=== PATIENT | female | born 1955 | race Caucasian/White ===

== ENCOUNTER 2020-11-13 07:51 | Outpatient (REF) | payer BC, SELFPAY ==
--- NOTE | ~2020-11-13 | MM_ITS ---
EXAMINATION: MM SCREENING DIGITAL BREAST TOMOSYNTHESIS, BILATERAL CLINICAL INFORMATION: Screening. Asymptomatic. The lifetime risk of breast cancer based on the Tyrer-Cuzick Model is 7.6%. COMPARISON: Mammography: September 06, 2017 and studies dating back to January 14, 2010 TECHNIQUE: Digital breast tomosynthesis is performed in both the craniocaudal and mediolateral oblique views along with computer-aided detection (CAD). Synthesized 2D images are generated from the tomosynthesis. FINDINGS: There are scattered areas of fibroglandular density (ACR BI-RADS breast composition Category b). There are no significant masses, abnormal calcifications, or other abnormalities. Intramammary lymph nodes present. MM/MM tomosynthesis screening BI IMPRESSION: There are no significant changes from prior study. ASSESSMENT: BI-RADS 1: Negative RECOMMENDATION: Routine annual mammography screening. This patient's information was entered into a reminder system with a target due date for their next mammogram.
== END 2020-11-13 07:52 | disposition home or self-care (01) ==
LOC: HO.MAMMO 07:51
PROVIDERS: PCP Internal Medicine Endocrinology, Diabetes & Metabolism; Visit Provider Internal Medicine Endocrinology, Diabetes & Metabolism
DX: Z12.31 Encounter for screening mammogram for malignant neoplasm of breast (principal)
CPT/HCPCS: 77063; 77067

== ENCOUNTER 2021-11-18 07:51 | Outpatient (REF) | payer BC, SELFPAY ==
--- NOTE | ~2021-11-18 | MM_ITS ---
EXAMINATION: MM SCREENING DIGITAL BREAST TOMOSYNTHESIS, BILATERAL CLINICAL INFORMATION: Screening. Asymptomatic. The lifetime risk of breast cancer based on the Tyrer-Cuzick Model is 8%. COMPARISON: Mammography: 11/13/2020, 09/06/2017 TECHNIQUE: Digital breast tomosynthesis is performed in both the craniocaudal and mediolateral oblique views along with computer-aided detection (CAD). Synthesized 2D images are generated from the tomosynthesis. FINDINGS: There are scattered areas of fibroglandular density (ACR BI-RADS breast composition Category b). There are no significant masses, abnormal calcifications, or other abnormalities. There is stable small circumscribed nodule anterior upper outer left breast and central 9:00 right breast similar to prior exam. The axilla and skin contours are unremarkable. MM/MM tomosynthesis screening BI IMPRESSION: No significant changes from prior studies. ASSESSMENT: BI-RADS 2: Benign RECOMMENDATION: Routine annual mammography screening. This patient's information was entered into a reminder system with a target due date for their next mammogram.
== END 2021-11-18 07:52 | disposition home or self-care (01) ==
LOC: HO.MAMMO 07:51
PROVIDERS: Visit Provider Internal Medicine Endocrinology, Diabetes & Metabolism
DX: Z12.31 Encounter for screening mammogram for malignant neoplasm of breast (principal)
CPT/HCPCS: 77063; 77067

== ENCOUNTER 2022-11-24 07:23 | Outpatient (REF) | payer BC, SELFPAY ==
--- NOTE | ~2022-11-24 | MM_ITS ---
EXAMINATION: MM SCREENING DIGITAL BREAST TOMOSYNTHESIS, BILATERAL CLINICAL INFORMATION: Screening. Asymptomatic. The lifetime risk of breast cancer based on the Tyrer-Cuzick Model is 7%. COMPARISON: Mammography: 11/18/2021, 11/13/2020, 09/06/2017 TECHNIQUE: Digital breast tomosynthesis is performed in both the craniocaudal and mediolateral oblique views along with computer-aided detection (CAD). Synthesized 2D images are generated from the tomosynthesis. FINDINGS: There are scattered areas of fibroglandular density (ACR BI-RADS breast composition Category b). Parenchymal pattern is similar to prior studies. There is scattered bilateral minor nodularity similar to prior exams. No significant mass. No architectural abnormality or abnormal calcifications. The axilla and skin contours are unremarkable. No significant changes. MM/MM tomosynthesis screening BI IMPRESSION: No mammographic evidence of malignancy. ASSESSMENT: BI-RADS 2: Benign RECOMMENDATION: Routine annual mammography screening. This patient's information was entered into a reminder system with a target due date for their next mammogram.
== END 2022-11-24 07:24 | disposition home or self-care (01) ==
LOC: HO.MAMMO 07:23
PROVIDERS: PCP Internal Medicine Endocrinology, Diabetes & Metabolism; Visit Provider Internal Medicine Endocrinology, Diabetes & Metabolism
DX: Z12.31 Encounter for screening mammogram for malignant neoplasm of breast (principal)
CPT/HCPCS: 77063; 77067

== ENCOUNTER 2023-11-30 07:56 | Outpatient (REF) | payer BC, SELFPAY | END 2023-11-30 07:57 | disposition home or self-care (01) | LOC: HO.MAMMO 07:56 | PROVIDERS: PCP Internal Medicine Endocrinology, Diabetes & Metabolism; Visit Provider Internal Medicine Endocrinology, Diabetes & Metabolism | DX: Z12.31 Encounter for screening mammogram for malignant neoplasm of breast (principal) | CPT/HCPCS: 77063; 77067 ==

== ENCOUNTER → 2023-11-30 08:00 | Outpatient (BNV) | payer BC, SELFPAY | PROVIDERS: PCP Internal Medicine Endocrinology, Diabetes & Metabolism; Visit Provider Radiology Diagnostic Radiology | DX: Z12.31 Encounter for screening mammogram for malignant neoplasm of breast (principal) | CPT/HCPCS: 77063; 77067 ==

== ENCOUNTER 2025-01-08 14:03 | Outpatient (AMB) | payer BC, SELFPAY ==
--- NOTE | 2025-01-08 14:04 | A.OFFPC_ITS ---
Vital Signs 01/08/25 14:15 Height 5 ft 4 in Weight 207 lb 4 oz BMI 35.6 BP 132/74 Blood Pressure Location Lt brachial Position Sitting Respiration 13 Pulse 76 Pulse Source Pulse Oximeter Temp 97.2 F Temp Source Oral Pulse Oximetry (%) 97 Oxygen Delivery Method Room Air Intake Visit Reasons: CPE/Diabetes Intake Note: New patient to establish care Motor Grader Operator Required: No Allergies amoxicillin [From Augmentin] Allergy (Severe, Verified 01/08/25 14:09) Itching clavulanic acid [From Augmentin] Allergy (Severe, Verified 01/08/25 14:09) Itching Medication List - Last Reconciled 01/08/25 by Reena Lott, LEAN MANUFACTURING SPECIALIST- atorvastatin 20 mg PO DAILY dulaglutide (Trulicity) mg subcut flash glucose sensor (FreeStyle Ondina 2 Sensor kit) As directed insulin aspart U-100 (Novolog PenFill U-100 Insulin aspart) 1 sliding scale dose subcut USEASDIRECTD insulin aspart U-100 (Novolog FlexPen U-100 Insulin aspart) subcut insulin glargine (Basaglar KwikPen U-100 Insulin) 45 units (0.45 mL) subcut QPM metformin ER 1,000 mg (2 x 500 mg) PO BID pen needle, diabetic (Comfort EZ Pen Scott) Use 5 times per day pen needle, diabetic As directed sertraline 50 mg PO DAILY valsartan 160 mg PO DAILY Tobacco use date assessed: 01/08/25 Fall risk assessment: 2 + Falls in past year Last assessed Fall Risk: 01/08/25 Dental Screening Dental Screen Date: 01/08/25 Did you have a dental visit in the last 12 months?: No Did you have a dental problem in the last 6 months where you did not have access to dental care?: No Was dental information given to patient?: Patient has dentist HPI HPI Comments History of Present Illness Details Matti 69 y/o F with MDD, HLD, DM2 on insulin, HTN, obesity, environmental allergies Health Maintenance: Colon DEXA PAP Tdap 2004, admin today Mammo 11/2023 Specialists: [facility] Here today to est care Previous PCP: Bandar Feldman No records avail DM 2: uncontrolled a1c today 11.1%, has been out of trulicity for weeks. Taking metformin and Basaglar. Not taking Novolog as directed. Was using CGM, remains interested. Needs new referral to Endo Referred to Optho today for DM Eye exam HTN controlled on Valsartan HLD on statin MDD was on sertraline but ran out. Kamla si/hi. would like to restart Due for Tdap. Ff'd by ENT for allergies and voice hoarsness Review of Systems - Constitutional: Reports increased phys ical activity. - Endocrine: Reports poorly controlled d iabetes, A1c 11.1%. - Cardiovascular: Denies chest pain or p alpitations. - Neurological: Reports memory difficult ies. - Psychiatric: Reports history of depres eloisa. - Gastrointestinal: Denies abdominal keyana n. - Musculoskeletal: Denies joint pain. - Ophthalmologic: Reports need for diabe tic eye exam. - Dermatological: Denies new skin lesion s. - Respiratory: Denies dyspnea; reports h oarseness. - Urinary: Denies dysuria. - Hematologic: Denies easy bruising or b leeding. Physical Exam General: Well developed, well nourished, in no acute distress. Appears stated age. Head: Normocephalic, atraumatic. Eyes: Pupils are equal, round and reactive to light and accommodation. Conjunctivae are clear. Vision grossly normal. P Lungs: Clear to auscultation bilaterally. No rales, rhonchi or wheeze noted. Good air flow in all lester. Heart: Regular rate and rhythm. No murmurs, click, rubs or gallops are noted. Pulses: Peripheral pulses are equal and palpable bilaterally. Extremities: No clubbing, cyanosis nor edema is noted. Psych: Mood and affect appropriate. Results - Labs: A1c measurement 11.1%. Discussion Notes I discussed with the patient the management and treatment options for her chronic conditions, particularly focusing on her diabetes management due to an elevated A1c of 11.1%. We reviewed the importance of consistent medication adherence, particularly for glucose control, and I noted the need to address her issues with pharmacy compliance for continuity of care. Additionally, we discus sed the plan for diabetes management including a referral to an personal computer specialist within the hospital system to improve coordination of care. We talked about the insulin regimen adjustment to 45 units of Basaglar nightly, from 32, to better manage her glucose. I emphasized the need for regular follow-up visits to monitor her progress and adjust treatment plans accordingly. Further, I discussed the necessity of a diabetic eye exam. The patient consented to all proposed plans and was agreeable to the new management strategies. Assessment and Plan 1. Diabetes Mellitus Type 2 - Adjust insulin glargine to 45 units be dtime. - Endocrinology referral entered. - Refill metformin prescription, - Resume Trulicity 1.5 weekly - CGM renewal - Issue pen needles 2. Hyperlipidemia - Continue atorvastatin. 3. Depression - Refill sertraline 50 mg. 4. Hypertension - Continue valsartan. 5. Preventive Care - Administer tetanus booster. - Diabetic eye exam referral. 6. Lifestyle Modification - Encourage physical activity. - Patient Instructions - Take insulin glargine 45 units at bedt mckayla. - Take metformin as prescribed: two 500 mg tablets in the morning and at night. - Resume Trulicity once you have a presc ription. - Continue atorvastatin and valsartan as before. - Restart sertraline and find your felipe dueñas bottle at home. - Exercise daily and maintain healthy me al patterns. - Schedule and attend your upcoming endo crinology and diabetic eye appointments. - Get your tetanus shot today before you leave. - Follow up in 8-10 weeks for the next v isit. Consent Patient was informed and verbally consented to the use of an ambient scribe for clinic note documentation during this visit. Total time spent caring for the patient today was 42 minutes. This includes time spent before the visit reviewing the chart, time spent during the visit, and time spent after the visit on documentation, reviewing laboratory results, diagnostic imaging, medications, performing a medically necessary evaluation, counseling on diagnoses, care coordination, ordering appropriate tests, ordering appropriate medications, review of tests performed by other providers, reporting test results with the patient, communication with other healthcare providers. [facility] Social History (Updated 01/08/25 @ 14:20 by Priscilla Nguyen MA) Household Members: Spouse Both parents involved: No Caregiver staying overnight: No Housing: House Are you a primary floor care technician to a significant other at home: No Do you presently have visiting nurse or other home services: No 75 years or older and lives alone: No Alcohol intake: current Alcohol intake frequency: a few times a month Patient Tobacco Use Status: Never used Tobacco e-Cigarette/Vaping Use: Never Used Second Hand Smoke Exposure: No service: No Current occupational status: employed Current occupation: contractor Cognitive needs: No Hearing needs: No Vision needs: Yes (wear glasses) Questionnaire PHQ-9 Over the last 2 weeks, how often have you been bothered by any of the following problems? 1. Little interest or pleasure in doing things: not at all 2. Feeling down, depressed, or hopeless: not at all 3. Trouble falling or staying asleep, or sleeping too much: not at all 4. Feeling tired or having little energy: not at all 5. Poor appetite or overeating: not at all 6. Feeling bad about yourself - or that you are a failure or have let yourself or your family down: not at all 7. Trouble concentrating on things, such as reading the newspaper or watching television: not at all 8. Moving or speaking so slowly that other people could have noticed. Or the opposite - being so fidgety or restless that you have been moving around a lot more than usual: not at all 9. Thoughts that you would be better off or of hurting yourself in some way: not at all Total score: 0 Depression Screening Interpretation: Negative Depression Screening Done: Yes 97057 - PHQ-9 Billing: Yes Source: Developed by Drs. Syd Malik, Florencia Maynard, Checo Winston and colleagues, with an educational ameya from [employer]. Thrive Questionnaire Date Thrive assessed: 01/08/25 I am a: Patient What is your living situation today?: I have a steady place to live Within the past 12 months, did the food you bought not last and you didn't have the money to get more?: Never true Within the past 12 months, did you worry whether your food would run out before you got money to buy more?: Never true Do you have trouble paying for medicines?: No Do you have trouble getting transportation to medical appointments?: No Do you have trouble paying your heating and electricity bill?: No Do you have trouble taking care of your child, family member or friend?: No Do you have trouble with day-to-day activities such as bathing, preparing meals, shopping, managing finances, etc.?: No Are you currently unemployed and looking for a job?: No Are you interested in more education?: No THRIVE Score: 0 AUDIT C Alcohol Use Questionnaire (AUDIT-C) 1. How often do you have a drink containing alcohol?: Monthly or less 2. How many drinks containing alcohol do you have on a typical day when you are drinking?: 1 or 2 Total Score: 1 Score Reviewed/Action Taken: Yes AMIE-7 AMB Questionnaire AMIE-7 Date AMIE - 7 assessed: 01/08/25 Feeling nervous, anxious, or on edge: 0 = Not at all Not being able to stop or control worryin = Not at all Worrying too much about different things: 0 = Not at all Trouble relaxin = Not at all Being so restless that it is hard to sit still: 0 = Not at all Becoming easily annoyed or irritable: 0 = Not at all Feeling afraid as if something awful might happen: 0 = Not at all Total AMIE-7 score (0-4 normal; 5-9 mild; 10-14 moderate; 15-21 severe): 0 Source: Developed by Drs. Syd Malik, Florencia Maynard, Checo Winston and colleagues, with an educational ameya from [employer]. AMIE-7 Assessment Billing AMIE-7 Assessment Tool: AMIE-7 Assessment 10232 Physical exam (Primary Care) Vital Signs: Last Vital Signs Temp 97.2 F 01/08/25 14:15 Pulse 76 01/08/25 14:15 Resp 13 01/08/25 14:15 BP 132/74 01/08/25 14:15 Pulse Ox 97 01/08/25 14:15 Oxygen Delivery Method Room Air 01/08/25 14:15 BMI result Body Mass Index 35.6 BMI Assessment/Plan discussion: High BMI High, discussed plan: lifestyle Tobacco/Smoking Status: Tobacco use Status Tobacco use date assessed 01/08/25 01/08/25 14:08 Patient Tobacco Use Status Never used Tobacco 01/08/25 14:20 e-Cigarette/Vaping Use Never Used 01/08/25 14:20 PHQ-9: PHQ-9 Score PHQ-9: Total score 0 01/08/25 14:57 Depression Screening Interpretation: Negative Thrive Assessment: Date of Thrive Assessment Date Thrive assessed 01/08/25 01/08/25 14:08 Results AMB Hemoglobin A1c AMB Hemoglobin A1c 11.1 % Last Edit by Priscilla Nguyen MA on 01/08/25 14:26 Immunizations Boostrix Tdap 2.5 Lf unit-8 mcg-5 Lf/0.5 mL intramuscular syringe Performing Provider: HANNAH Muñoz Performing Location: [facility] Family Medicine Administered by: Priscilla Nguyen MA on 01/08/25 15:03 Dose Route Admin Location Dispensed Lot Number Expiration Date NDC Community Support Professional 0.5 mL IM Right Deltoid 0.5 mL [id number] 04/14/27 [id number] Dealer Ignition VIS Given Date VIS Provided VIS Publication Date 01/08/25 Single Vaccine 21 Eligibility Eligibility Date Funding Source Not [facility] Eligible 01/08/25 Private Results Reviewed Results Reviewed: Laboratory Last Values Hgb A1c (Clinic) 11.1 % (4.0-6.0) H 01/08/25 14:15 Coding Level of Care Code New Pt Level 4 (60393) Complex EM visit Add On G2211 Diagnoses Encounter to establish care Z76.89 Mixed hyperlipidemia E78.2 Hyperlipidemia type: mixed hyperlipidemia Diabetes mellitus with insulin therapy E11.9; Z79.4 Obesity (BMI 30-39.9) E66.9 DM w/ complication E11.8 Mild episode of recurrent major depressive disorder F33.0 Major depression episode severity: mild 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 Need for Tdap vaccination Z23 Additional Codes AMIE-7 Assessment Billing - AMIE-7 Assessment Tool: AMIE-7 Assessment 63411 ([id number]) PHQ-9 - 58993 - PHQ-9 Billing: Yes ([id number]) Assessment & Plan Assessment & Plan (1) Encounter to establish care: Code(s): Z76.89 - Persons encountering health services in other specified circumstances (2) HLD (hyperlipidemia): Code(s): E78.5 - Hyperlipidemia, unspecified Category: Medical Qualifiers: Hyperlipidemia type: mixed hyperlipidemia Qualified Code(s): E78.2 - Mixed hyperlipidemia (3) Diabetes mellitus with insulin therapy: Code(s): E11.9 - Type 2 diabetes mellitus without complications; Z79.4 - terminal make up operator (current) use of insulin Category: Medical (4) Obesity (BMI 30-39.9): Code(s): E66.9 - Obesity, unspecified Category: Medical (5) DM w/ complication: Comment: HTN and HLD Code(s): E11.8 - Type 2 diabetes mellitus with unspecified complications Category: Medical (6) MDD (major depressive disorder), recurrent episode: Code(s): F33.9 - Major depressive disorder, recurrent, unspecified Category: Medical Qualifiers: Major depression episode severity: mild Qualified Code(s): F33.0 - Major depressive disorder, recurrent, mild (7) HTN (hypertension): Code(s): I10 - Essential (primary) hypertension Category: Medical Qualifiers: Hypertension type: secondary to endocrine disorders Qualified Code(s): I15.2 - Hypertension secondary to endocrine disorders (8) Need for Tdap vaccination: Code(s): Z23 - Encounter for immunization Category: Medical Plan . Orders: Orders Comprehensive Met. Panel Today E11.8 - Type 2 diabetes mellitus with unspecified complications, E11.9 - Type 2 diabetes mellitus without complications, E66.9 - Obesity, unspecified, E78.5 - Hyperlipidemia, unspecified, Z79.4 - terminal make up operator (current) use of insulin Lipid Panel Today E11.8 - Type 2 diabetes mellitus with unspecified complications, E11.9 - Type 2 diabetes mellitus without complications, E66.9 - Obesity, unspecified, E78.5 - Hyperlipidemia, unspecified, Z79.4 - terminal make up operator (current) use of insulin TSH reflex Free T4 Today E11.8 - Type 2 diabetes mellitus with unspecified complications, E11.9 - Type 2 diabetes mellitus without complications, E66.9 - Obesity, unspecified, E78.5 - Hyperlipidemia, unspecified, Z79.4 - terminal make up operator (current) use of insulin AMB Hemoglobin A1c Today Z13.9 - Encounter for screening, unspecified Complete Blood Count no Diff Today E11.8 - Type 2 diabetes mellitus with u nspecified complications, E11.9 - Type 2 diabetes mellitus without complications, E66.9 - Obesity, unspecified, E78.5 - Hyperlipidemia, unspecified, Z79.4 - terminal make up operator (current) use of insulin Microalbumin, Random (w Creat) Today E11.8 - Type 2 diabetes mellitus with unspecified complications, E11.9 - Type 2 diabetes mellitus without complications, E66.9 - Obesity, unspecified, E78.5 - Hyperlipidemia, unspecified, Z79.4 - residential (current) use of insulin Vitamin B12 and Folate Today E11.8 - Type 2 diabetes mellitus with unspecified complications, E11.9 - Type 2 diabetes mellitus without complications, E66.9 - Obesity, unspecified, E78.5 - Hyperlipidemia, unspecified, Z79.4 - terminal make up operator (current) use of insulin Vitamin D 25-OH Total Today E11.8 - Type 2 diabetes mellitus with unspecified complications, E11.9 - Type 2 diabetes mellitus without complications, E66.9 - Obesity, unspecified, E78.5 - Hyperlipidemia, unspecified, Z79.4 - residential (current) use of insulin TDaP Immunization Today Z23 - Encounter for immunization Referrals Endocrinology Referral E11.8 - Type 2 diabetes mellitus with unspecified complications, E11.9 - Type 2 diabetes mellitus without complications, Z79.4 - terminal make up operator (current) use of insulin Ophthalmology Referral E11.8 - Type 2 diabetes mellitus with unspecified complications, E11.9 - Type 2 diabetes mellitus without complications, Z79.4 - terminal make up operator (current) use of insulin Medications: New metformin ER 1,000 mg (2 x 500 mg) PO BID 180 tabs 0RF insulin glargine (Basaglar KwikPen U-100 Insulin) 45 units (0.45 mL) subcut QPM 15 mL 2RF pen needle, diabetic (Comfort EZ Pen Scott) Use 5 times per day 100 ea 12RF sertraline 50 mg PO DAILY 90 tabs 2RF valsartan 160 mg PO DAILY 90 tabs 0RF flash glucose sensor (FreeStyle Ondina 14 Day Sensor kit) As directed 2 ea 11RF E11.8 - Type 2 diabetes mellitus with unspecified complications, E11.9 - Type 2 diabetes mellitus without complications, Z79.4 - residential (current) use of insulin sertraline 50 mg PO DAILY 90 tabs 2RF metformin ER 1,000 mg (2 x 500 mg) PO BID 180 tabs 0RF atorvastatin 20 mg PO DAILY 90 tabs 0RF flash glucose scanning reader (FreeStyle Ondina 14 Day [place]) As directed 1 ea 0RF E11.9 - Type 2 diabetes mellitus without complications, Z79.4 - terminal make up operator (current) use of insulin dulaglutide (Trulicity) 1.5 mg (0.5 mL) subcut QWEEK 2 mL 12RF E11.8 - Type 2 diabetes mellitus with unspecified complications Boostrix Tdap (diphth,pertus(acell),tetanus) 0.5 mL IM ONCE 0.5 mL 0RF NS Z23 - Encounter for immunization Patient Instructions: Patient Instructions - Take insulin glargine 45 units at bedtime. - Take metformin as prescribed: two 500 mg tablets in the morning and at night. - Resume Trulicity once you have a prescription. - Continue atorvastatin and valsartan as before. - Restart sertraline and find your missing bottle at home. - Exercise daily and maintain healthy meal patterns. - Schedule and attend your upcoming endocrinology and diabetic eye appointments. - Get your tetanus shot today before you leave. - Follow up in 8-10 weeks for the next visit. Walk-In Care (Urgent Care): We Make it Easy Walk-in for urgent medical issues such as: ? Seasonal Allergies ? Insect Bites ? Cough ? Diarrhea ? Acute Asthma Attacks ? Back, Knee or Joint Pain ? Ear Infection ? Fever without a Rash ? Headaches ? Nausea ? [place] [facility], Rash or Skin Irritation ? Sore Throat ? Sports Physicals ? Vomiting Most insurances are accepted. Patients do not need to be part of the [facility] to seek care at the walk-in clinic. Locations [facility] [place] [address] ? [phone] [facility] in [place] provides services to ages 18 and over. Open Sunday-Sunday: 8 a.m. to 5 p.m. and Sunday: 9 a.m. to 3 p.m.* *Hours may vary due to staffing availability. To confirm Walk-In Care hours in [place], please call [phone]. [address] [place] [address] ? [phone] [facility] in [place] provides services to ages 12 and over. Open Sunday-Sunday: 8 a.m. to 5 p.m. Hours may vary due to staffing availability. To confirm Walk-In Care hours in [place], please call [phone]. LABORATORY SERVICES: [facility] Lab ? Primary Location [address] [place] [address] Sunday through Sunday 6:00 AM ? 5:00 PM Sunday 7:00 AM ? 11:00 AM* [phone] The [facility] Lab is centrally located near the front entrance of the [facility] for easy outpatient access. Convenient parking is provided for outpatients. *Hours may vary due to staffing availability. To confirm Laboratory hours for any location, please call [phone]. Offsite Location For your convenience, we offer offsite laboratory draw stations at the following locations: [address] [place] [address] ? [facility] [address] [facility], [address], [place] Sunday through Sunday 7:30 AM ? 1:00 PM* [phone] *Hours may vary due to staffing availability. To confirm Laboratory hours for any location, please call [phone]. [place] ? [address] Sunday through Sunday 6:00 AM ? 3:30 PM* Sunday 6:30 AM ? 3 PM* [phone] *Hours may vary due to staffing availability. To confirm Laboratory hours for any location, please call [phone] [place] [address] Sunday through Sunday 7:30 AM ? 4:00 PM* [phone] *Hours may vary due to staffing availability. To confirm Laboratory hours for a co location, please call [phone] [place] [address] Sunday through 9:00 AM ? 4:00 PM* *Hours may vary due to staffing availability. To confirm Laboratory hours for any location, please call [phone]. Appointments are not necessary. Walk-ins are welcome. Like all the departments throughout the [facility], our Lab undergoes frequent reviews to ensure the quality and accuracy of test results, and our staff takes special pride in its status as a nationally accredited facility. Patient Portal: ONE PATIENT. ONE RECORD. BETTER CARE. [facility] has a fully integrated, cutting- edge mobile electronic health information system that has revolutionized the way we care for our patients and manage our organization. This system improves communication and coordination enabling us to provide safe, higher-quality care, and an overall positive experience for staff and patients. Our first priority, as always, is to deliver the highest quality care possible. The system is running in the background supporting that priority. This portal is for all [facility] services and practices. If you are experiencing any technical difficulties with enrolling or logging into the Patient Portal please complete the [facility] Patient Portal Technical Support Form. [facility] now offers a new secure on-line interactive tool for patients to review their health information ? ?Patient Portal. This interactive web portal will enable patients and their families to take an active role in their care by providing easy, secure access to their health information via the internet. The Patient Portal provides patients with instant access to their health information, including laboratory results, medications, allergies, demographic information, visit history, and more. In addition to managing their own care, parents and health care proxies with authorized consent will appreciate the ability to access the records of those individuals for whom they provide care. Please note: if you wish to gain access (Proxy) to another patient?s portal, you will be required to come to the Medical Records Department in person at [facility]. Both the patient giving proxy access and the proxy will need to provide photo identification and complete the appropriate authorization. The Patient Portal also allows track their appointments online. The [facility] Patient Portal also saves patients time by allowing them to submit updates to their demographic and contact information prior to their visits. Portal email notifications will also alert patients to any new activity on their portal, such as test results and new appointments. In order to initially enroll in the [facility] Patient Portal, you will need to enter some required information including the following: * your [facility] Medical Record number * your personal home email address * name * date of Please note: In order to enroll in the [facility] Patient Portal, we need to have your email address on file in your electronic medical record. ?The email address needs to be specific for one person (yourself) in order for your Portal enrollment to be successful. ?You can update your email address in person with our Registration staff when you are registering for a hospital visit. ?Otherwise, you will need to come to the Health Information Management (Medical Records) Department at [facility]. ?We are open from Sunday ? Sunday from 7:30 a.m. ? 4:30 p.m. ?You will be required to present a photo id. Once you have successfully enrolled in the Patient Portal, you will receive a one-time user id and password for the Portal, sent to your email address. ?This will allow you to log into the Patient Portal within 99 hrs and reset your own logon id and password, and define personal security questions. ?Once your permanent login and password have been set, you can log into the [facility] Patient Portal at any time via the blue button above or from the Portal Logon button on any page of the [facility] website. [facility] and [facility] encourage all of our patients to enroll in Patient Portal as it presents a valuable opportunity for patients and their families to actively participate in their care and stay healthy Welcome to [facility]. ?We look forward to working with you.
--- OUTSIDE RECORDS SUMMARY | 2025-01-08 14:10 | XMS_ITS | Continuity of Care Document ---
Author Organization [facility] [address] [place] [address] Phone [phone] Care Team Providers Care Director Credit Risk Name Role Phone Chayo Umana Care Team Information Receive r [phone] Problems Active Problems Provider Date Type 2 diabetes mellitus Yoshi Joyce M.D. O nset: 03/23/2022 Essential hypertension Yoshi Joyce M.D. Ons et: 03/23/2022 Hypercholesterolemia Yoshi Joyce M.D. Onset : 03/23/2022 Allergic rhinitis Yoshi Joyce M.D. Onset: 0 03/23/2022 Insulin treated type 2 diabetes mellitus Yoshi phillip M.D. Onset: 03/02/2023 Social History Type Date Description Comments Sex Unknown ETOH Use Rarely consumes alcohol Tobacco Use Start: Unknown End: Unknown Patient is a former smoker Smoking Status Reviewed: 03/02/23 Patient is a former smoker Allergies and adverse reactions Active Allergies Criticality Reaction Severity Comments Date Aspirin Unable to assess criticality 03/02/2023 Voltaren Unable to assess criticality 03/02/2023 Medications Active Medications SIG Qnty Indications Order ing Provider Date Atorvastatin [id number] Tablets 1 tab by mouth every day as directed 90tabs Carline Kathleen M.D. 06/26/2024 Freestyle Ondina 3/[place]/Glucose Monitoring Apdjgr8Lvcrte Device use with sensors to check blood sugar dx:e11.9 1ungordo Kathleen M.D. 06/26/2024 Freestyle Ondina 3/Sensor/Glucose Monitoring Miolao7Qiqzrg Misc Use With [place] For Glucose Monitoring as directed 3ungordo Kathleen M.D. 06/26/2024 Trulicity1.5mg/0.5M L Solution Pen-Inject inject 1.5 mg subcutaneously every week dx: e11.9 2ml E11Khadar Kathleen M.D. 03/14/2024 Novolog Xljaylh587Wxcp/ML Solution Pen-Inject inject 6-12 units subcutaneously before meals 30ml E11Jeniffer9 Yoshi Joyce M.D. 11/19/2023 Sertraline THQ77gx Tablets Take 1/2 Tablet By Mouth For 5 Days, Then 1 Tablet Daily 90tabs Carline Kathleen M.D. 2023 BD Pen Needle/Short/Ultra- Fine/31G X 8mm31G X 8 mm Misc 1 Pen Needle To Insulin Pen Once A Day Dx: E11.9 100units E11Khadar Joyce M.D. 03/02/2023 [id number] Tablets Take 1 Tablet By Mouth Every Day 90tabs Yoshi Joyce M.D. 04/05/2022 Metformin [id number] Tablets Take 1 Tablet By Mouth Twice A Day 180taalberto Joyce M.D. 03/23/2022 Basaglar Wxbskia992Mdit/ML Solution Pen-Inject 38 units at bedtime 30ml E11Khadar Kathleen M.D. 03/23/2022 Vital Signs Date Vital Result Comment 06/26/2024 9:08am BP Systolic 130 mmHg BP Diastolic 88 mmHg Heart Rate 98 /min Height 65 inches 5'5 Weight 201.38 lb BMI (Body Mass Index) 33.5 kg/m2 Results Test Acquired Date Facility Test Result H/L Range Note Hemoglobin A1c 06/26/2024 Inhouse Hemoglobin A1c 10.5 % Glucose Fingerstick 06/26/2024 Inhouse Glucose Fingerstick 247 Lipid Panel 06/25/2024 [facility] Cholesterol, Total 193 mg/dL 100-199 Triglycerides 79 mg/dL 0-149 HDL Cholesterol 75 mg/dL >39 VLDL Cholestero l Manoj 14 mg/dL 5-40 LDL Chol Calc (Nih) 104 mg/dL High 0-99 LDL Calc Comment: TNP Albumin/Creatinin e Ratio, Random Urine 06/25/2024 [facility] Creatinine, Urine 183.8 mg/dL Not Estab. Albumin, Urine 18.2 ug/mL Not Estab. Alb/Creat Ratio 10 mg/gcreat 0-29 1 Glucose Fingerstick 03/14/2024 Inhouse Glucose Fingerstick 105 Hemoglobin A1c 03/13/2024 [facility] Hemoglobin A1c 7.7 % High 4.8-5.6 2 Glucose Fingerstick 12/19/2023 Inhouse Glucose Fingerstick 127 Glucose Fingerstick 11/15/2023 Inhouse Glucose Fingerstick 334 Hemoglobin A1c 11/14/2023 [facility] Hemoglobin A1c 15.0 % High 4.8-5.6 3 Comprehensive Metabolic Panl 03/02/2023 [facility] Glucose 97 mg/dL (70-99) BUN 29 mg/dL High (8-23) Creatinine 1.0 mg/dL (0.5-1.0 ) Sodium 139 mmol/L (133-145 ) Potassium 4.7 mmol/L (3.6-5.2 ) Chloride 102 mmol/L (98-107) Bicarbonate 24 mmol/L (22-29) Anion Gap 13 (4-17) Albumin 4.7 GM/DL (3.4-4.8 ) Calcium 10.4 mg/dL (8.6-10. 5) Bilirubin,Total 0.3 mg/dL (0-1.2 ) Total Protein 7.3 GM/DL (6.2-8.2 ) Ag Ratio 1.8 Ast 22 U/L (0-32) Alk Phos 98 U/L (35-104) Alt 14 U/L (0-33) Estimated GFR Creatinine 66 ML/MIN/1. 73M2 4 Complete Abc With Diff 03/02/2023 [facility] WBC 10.9 K/MM3 (4.0-11. 0) RBC 4.71 M/MM3 (4.20-5. 40) HGB 12.6 GM/DL (11.7-15 .5) HCT 41.1 % (35.7-45 .8) MCV 87.3 FL (80.0-10 0.0) MCH 26.8 pg Low (27.0-34 .0) MCHC 30.7 g/dL Low (33.0-37 .0) PLT 300 K/MM3 (150-460 ) RDW-SD 45.1 FL (<47.0) MPV 10.6 FL (9.4-12. 4) Automated NRBC 0.0 #/100WBC' S Abs. NRBC 0.0 K/MM3 Neut # 5.2 K/MM3 (1.3-7.0 ) Lymph # 4.6 K/MM3 High (0.8-3.1 ) [place]# 0.7 K/MM3 (0.4-0.9 ) Eo # 0.3 K/MM3 (0.0-0.4 ) Baso # 0.1 K/MM3 (0.0-0.1 ) Abs. Imm Gran 0.1 K/MM3 Neut 47.7 % (44-76) Lymph 42.1 % (15-43) Monocyte 6.6 % (4.5-10. 5) Eo 2.3 % (0-6) Baso 0.8 % (0-2) Imm Gran 0.5 % Urinary Microalbumin 03/02/2023 [facility] Micro-Albumin <12.0 mg/L (<20) 5 Malb/Creat Ratio Unable t o calcul <SEE NOTE> MG/GM (0-20) 6 Urine Creat For Micro Albumin 51.0 mg/dL Hemoglobin A1c 03/02/2023 Inhouse Hemoglobin A1c 7.5% Glucose Fingerstick 03/02/2023 Inhouse Glucose Fingerstick 109 1 Normal: 0 - 29 Moderately increased: 30 - 300 Severely increased: >300 2 Prediabetes: 5.7 - 6 .4 Diabetes: >6.4 Glycemic control for adults with diabetes: <7.0 3 Prediabetes: 5.7 - 6 .4 Diabetes: >6.4 Glycemic control for adults with diabetes: <7.0 4 Creatinine based est imated glomerular filtration (eGFR) in adults is calculated using the [employer] recommended 2020 CKD-EPI equation. Estimates GFR from serum creatinine, age and sex. 5 The urine microalbum in test is designed to monitor renal function. When screening for Bence Cardoza proteinuria, urine electrophoresis is recommended. 6 Unable to calculate Procedures Date Code Description Status 10/15/2024 NSHOWOFF No Show Office Visit Complet ed 06/24/2024 NSHOWOFF No Show Office Visit Complet ed 03/14/2024 95145 Glucose Monitoring Interpeta tion And Report Completed Medical Devices Description No Information Available Encounters Type Date Location Provider Dx Diagnosis Office Visit 06/26/2024 9:00a Main Office [place] Goncalves E11.9 Type 2 diabet es mellitus without complications Z79.4 roasterman (current) use of insulin I10 Essential (primary) hypertension E78.00 Pure hypercholestero lemia, unspecified Assessments Date Code Description Provider 06/26/2024 E11.9 Type 2 diabetes mellitus wit hout complications [place] Goncalves 06/26/2024 Z79.4 alf (current) use of i nsulin [place] Goncavles 06/26/2024 I10 Essential (primary) hyperten eloisa [place] Goncalves 06/26/2024 E78.00 Pure hypercholesterolemia, u nspecified [place] Goncalves Plan of Treatment 06/26/2024 - [place] Goncalves* E11.9 Type 2 diabetes mellitus without complications * Z79.4 alf (current) use of insulin * I10 Essential (primary) hypertension * E78.00 Pure hypercholesterolemia, unspecified * * New Labs:* Lipid Panel, Ordered: 06/26/24 Functional Status Description No Information Available Mental Status Description No Information Available Referrals Refer to Reason for Referral Status Appt Shay e [facility] COLONOSCOPY Closed [address] [place] [address] [phone] [facility] Police Lieutenant COLONOSCOPY Closed [address] [place] [address] [phone]
[2025-01-08 14:15] VITALS: BP 132/74; PULSE 76; RESP 13; TEMP 36.2; O2SAT 97; BMI 35.6
== END 2025-01-08 14:29 | disposition home or self-care (01) ==
LOC: HO.HMCFM 14:04
PROVIDERS: PCP Nurse Practitioner Family; Visit Provider Nurse Practitioner Family
DX: E11.9 Type 2 diabetes mellitus without complications (principal); Z79.4 Long term (current) use of insulin; E11.8 Type 2 diabetes mellitus with unspecified complications; Z76.89 Persons encountering health services in other specified circumstances; E78.2 Mixed hyperlipidemia; E66.9 Obesity, unspecified; F33.0 Major depressive disorder, recurrent, mild; I15.2 Hypertension secondary to endocrine disorders; Z23 Encounter for immunization

== ENCOUNTER → 2025-01-08 14:03 | Outpatient (BNVA) | payer BC, SELFPAY | PROVIDERS: PCP Nurse Practitioner Family; Visit Provider Nurse Practitioner Family | DX: E11.8 Type 2 diabetes mellitus with unspecified complications (principal); E78.5 Hyperlipidemia, unspecified; E66.9 Obesity, unspecified; J30.2 Other seasonal allergic rhinitis; E78.2 Mixed hyperlipidemia; F33.0 Major depressive disorder, recurrent, mild; I15.2 Hypertension secondary to endocrine disorders; Z23 Encounter for immunization; Z79.4 Long term (current) use of insulin; Z76.89 Persons encountering health services in other specified circumstances; Z68.35 Body mass index [BMI] 35.0-35.9, adult | CPT/HCPCS: 83036; 90471; 90715; 96127 ==

== ENCOUNTER 2025-01-08 15:41 | Outpatient (REF) | payer BC, SELFPAY ==
[2025-01-08 18:15] LABS: Hematocrit 40.8 % (37.0-47.0); Hemoglobin 13.1 g/dl (12.0-16.0); Mean Corpuscular HGB Conc 32.1 g/dl (31.0-35.0); Mean Corpuscular Hemoglobin 27.6 pg (27.0-33.0); Mean Corpuscular Volume 86.1 fL (80.0-98.0); Mean Platelet Volume 10.6 fL (9.4-12.3); Platelet Count 291 X10*3/uL (160-400); Red Blood Count 4.74 X10*6/uL (4.20-5.50); Red Cell Distribution Width 13.1 % (11.0-16.0); White Blood Count 11.5 X10*3/uL (4.8-10.8)
[2025-01-08 18:21] LABS: Alanine Aminotransferase 18 U/L (0-31); Albumin Level 4.3 g/dL (3.5-5.0); Alkaline Phosphatase 102 U/L (39-117); Anion Gap 13 (12-20); Aspartate Amino Transferase 24 U/L (5-31); Bilirubin Total 0.3 mg/dL (0.0-1.0); Blood Urea Nitrogen 15 mg/dL (9-16); Calcium 10.1 mg/dL (8.4-10.2); Carbon Dioxide 26 mmol/L (22-29); Chloride 103 mmol/L (96-108); Cholesterol 206 mg/dL (<200); Estimated Glomerular Filt Rate 59; Glucose Random 349 mg/dL (60-115); HDL Cholesterol 64 mg/dL (>40); LDL Cholesterol Calculated 120 mg/dL (<100); Potassium 4.5 mmol/L (3.3-5.1); Sodium 137 mmol/L (135-145); Total Protein 7.3 g/dL (6.5-8.0); Triglycerides 112 mg/dL (<150)
[2025-01-08 18:28] LABS: TSH reflex Free T4 1.89 uIU/mL (0.32-4.0); Vitamin D 25-OH Total 21.2 ng/mL (>30)
[2025-01-08 18:57] LABS: Folate 7.5 ng/mL (> or = 4.0); Vitamin B12 663 pg/mL (200-900)
== END 2025-01-08 15:42 | disposition home or self-care (01) ==
LOC: HO.WFDLDS 15:41
PROVIDERS: Visit Provider Nurse Practitioner Family
DX: Z79.4 Long term (current) use of insulin (principal); E11.8 Type 2 diabetes mellitus with unspecified complications; E78.5 Hyperlipidemia, unspecified; E66.9 Obesity, unspecified
CPT/HCPCS: 36415; 80053; 80061; 82306; 82607; 82746; 84443; 85027